=== PATIENT | male | born 1950 | race Asian ===

== ENCOUNTER 2016-12-08 20:00 | Emergency (ER) | payer BC ==
--- NOTE | 2016-12-08 20:32 | UCPHY ---
H & P Patient Type: New Chief Complaint Nursing Narrative: flu like symptoms cough/fever/body aches HPI/ROS: HPI CHIEF COMPLAINT: Fever, cough, sore throat, chills, muscle aches, joint pain, runny nose HISTORY OF PRESENT ILLNESS: This patient is a very healthy 66-year-old male denies any significant medical history or surgical history does not take any daily medications he presents to the urgent care with less then 10 hours of symptoms. He states around noon today developed a fever above 100 at work, nonproductive cough, sore throat, chills, muscle aches, joint pain runny nose. Patient concerned he may have the flu. Denies vomiting but did have 1 episode of diarrhea yesterday. Denies abdominal pain chest pain or shortness of breath nonproductive cough. Past Medical History: No significant medical history Past Surgical History: No significant surgical history Social History: Denies use of drugs alcohol tobacco products Family History: Noncontributory ROS REVIEW OF SYSTEMS: A comprehensive 10 point review of systems is otherwise negative aside from elements mentioned in the history of present illness. Exam Constitutional appears well nontoxic, triage nursing summary reviewed, vital signs reviewed, awake/alert. Eyes normal conjunctivae and sclera, EOMI, PERRLA. HENT posterior pharynx is normal, TMs bilaterally normal, normal inspection, atraumatic, moist mucus membranes, no epistaxis, neck supple/ no meningismus, no raccoon eyes. Respiratory clear to auscultation bilaterally, normal breath sounds, no respiratory distress, no wheezing. Cardiovascular rate normal, regular rhythm, no murmur, no edema, distal pulses normal. Gastrointestinal soft, non-tender, no rebound, no guarding, normal bowel sounds, no distension, no pulsatile mass. Genitourinary no CVA tenderness. Musculoskeletal no midline vertebral tenderness, full range of motion, no calf swelling, no tenderness of extremities, no meningismus, good pulses, neurovascularly intact. Skin pink, warm, & dry, no rash, skin atraumatic. Neurologic awake, alert and oriented x 3, AAOx3, moves all 4 extremities equally, motor intact, sensory intact, CN II-XII intact, normal cerebellar, normal vision, normal speech. Psychiatric normal mood/affect. Heme/Lymph/Immune no lymphadenopathy. Differential Diagnosis: includes but is not limited to in a particular order: Influenza, viral syndrome, upper history tract infection, pneumonia, viral pneumonia, bacterial pneumonia, dehydration, electrolyte abnormality Medical Decision Making: plan for this patient is to have a two view chest x- ray evaluate for pneumonia, patient have influenza test. He appears well nontoxic here no acute distress. No hypoxia no tachycardia no fever. Clinical symptoms are consistent with a viral syndrome versus influenza versus pneumonia. Here in the Urgent Care he appears well nontoxic is no labored breathing is no hypoxia he is in no acute distress. Re-evaluation: 2117: patient is resting comfortably here in the emergency room no acute distress no hypoxia no respiratory distress. Dry cough. Influenza is negative. Influenza test is negative. Chest x-ray pending. ED x-ray chest two view: Shows haziness left lower lobe as well as right heart border consistent with pneumonia. Of note patient appears well here nontoxic no fever no hypoxia. Patient be discharged home on Levaquin 1st dose given here in the emergency room. Prescription for Levaquin, guaifenesin, prednisone , albuterol. He does understand if he has any worsening symptoms includes high fevers, vomiting, fatigue, worsening shortness of breath worsening cough to seek medical attention return to the emergency room. I went over this in detail. Strict return precautions given. Source: Patient - Personal History Current Tetanus/Diphtheria Vaccine: No Tetanus Vaccine Date: since 2007 - Medical/Surgical History Hx Asthma: No Hx Chronic Respiratory Disease: No Hx Diabetes: No Hx Cardiac Disease: No Hx Renal Disease: No Hx Cirrhosis: No Hx Alcoholism: No Hx HIV/AIDS: No Hx Splenectomy or Spleen Trauma: No Other PMH: KIDNEY STONES - Family History Significant Family History: No pertinent family hx - Social History Smoking Status: Never smoked Constitutional: Initial Vital Signs Temperature (C) 37 C 12/08/16 20:16 Heart Rate 71 12/08/16 20:16 Respiratory Rate 18 12/08/16 20:16 Blood Pressure 172/79 H 12/08/16 20:16 O2 Sat (%) 94 12/08/16 20:16 O2 Delivery Mode Room Air Allergies/Adverse Reactions: No Known Allergies Allergy (Verified 12/08/16 20:16) Home Medications: Medication Instructions Recorded RX: AZITHROMYCIN [Z-PACK] 250 mg PO DAILY #6 tab 12/08/16 RX: Albuterol [Proventil Inhaler 1 - 2 puffs IH Q4H #1 mdi 12/08/16 HFA (*)] RX: Guaifenesin [Guaifenesin ER] 600 mg PO BID #14 tab.er.12h 12/08/16 RX: Ibuprofen [Motrin (*)] 800 mg PO Q6-8PRN #7 tab 12/08/16 levOFLOXACIN [levAQUIN (*)] 500 mg PO DAILY #10 tab 12/08/16 Medical Decision Making - Data Points Laboratory Results: 12/08/16 20:22 Influenza Typ A,B (DFA) NEGATIVE FOR FLU (NEGATIVE) Departure - Departure Disposition: Home, Routine, Self-Care Clinical Impression: Viral syndrome Pneumonia Qualifiers: Pneumonia type: due to unspecified organism Laterality: left Lung location: lower lobe of lung Qualified Code(s): J18.1 - Lobar pneumonia, unspecified organism Condition: Good Instructions: Viral Syndrome (ED) Additional Instructions: 1. Drink lots of fluids stay well-hydrated 2. take Tylenol or Motrin if you're having a fever chills or muscle aches. 3. Please take antibiotic as prescribed as well as her cough medicine. Referrals: Jim Jacob DO [Primary Care Provider] - As per Instructions Prescriptions: RX: Albuterol [Proventil Inhaler HFA (*)] 1 - 2 puffs IH Q4H #1 mdi RX: AZITHROMYCIN [Z-PACK] 250 mg PO DAILY #6 tab RX: Guaifenesin [Guaifenesin ER] 600 mg PO BID #14 tab.er.12h RX: Ibuprofen [Motrin (*)] 800 mg PO Q6-8PRN #7 tab levOFLOXACIN [levAQUIN (*)] 500 mg PO DAILY #10 tab - PQRS PQRS Measurement: n/a
[2016-12-08 21:37] VITALS: BP 158/100; PULSE 68; RESP 16; TEMP 99.5; O2SAT 92
== END 2016-12-08 21:42 | disposition home or self-care (01) ==
LOC: CED 20:00
DX: J18.1 Lobar pneumonia, unspecified organism (principal); B34.9 Viral infection, unspecified; Z87.442 Personal history of urinary calculi
CPT/HCPCS: 71020-PO; 87400-PO; 99204-PO; G0463-PO

== ENCOUNTER → 2017-01-07 | Outpatient (CLI) | payer BC ==
[~2017-01-07] MED LIST: IOPAMIDOL (ISOVUE-300) 100 ML BTL IV ONE
== END ==
LOC: CIMAGING 09:17
PROVIDERS: ATTEND Family Medicine
DX: R10.12 Left upper quadrant pain (principal); R14.0 Abdominal distension (gaseous); K76.89 Other specified diseases of liver
CPT/HCPCS: 74160-PO; Q9967

== ENCOUNTER 2017-05-12 18:34 | Emergency (ER) | payer BC ==
--- NOTE | 2017-05-12 18:46 | CPEKG ---
Heart Rate: 65 RR Interval: 923 P-R Interval: 156 QRSD Interval: 106 QT Interval: 416 QTC Interval: 433 P Abie: -10 QRS Abie: -7 T Wave Abie: 19 EKG Severity - NORMAL ECG - EKG Impression: SINUS RHYTHM Electronically Signed By: Narendra Mcdermott 12-May-2017 19:06:59
[2017-05-12 18:50] LABS: % IMMATURE GRANULYOCYTES 0.2 % (0.0-1.1); ABSOLUTE IMMATURE GRANULOCYTES 0.01 10^3/uL (0.00-0.10); ADD DIFF? NO; ADD MORPH? NO; ADD SCAN? NO; ATYPICAL LYMPHOCYTE FLAG 10 (0-99); FRAGMENT RBC FLAG 0 (0-99); HEMOGLOBIN 16.2 g/dL (13.7-17.5); LEFT SHIFT FLG 0 (0-99); LIPEMIA HEMOLYSIS FLAG 90 (0-99); MEAN CELL HEMOGLOBIN 31.4 pg (27.9-34.1); MEAN CELL HEMOGLOBIN CONCENTR. 34.5 g/dL (32.4-36.7); MEAN CELL VOLUME 91.1 fL (81.5-99.8); PLATELET CLUMPS FLAG 10 (0-99); PLATELET COUNT 169 10^3/uL (150-400); RED BLOOD CELL COUNT 5.16 10^6/uL (4.40-6.38); RED CELL DISTRIBUTION WIDTH 11.9 % (11.5-15.2)
--- NOTE | 2017-05-12 19:01 | EDPHY ---
H & P Stated Complaint: c/o lt sided parathesia since Time Seen by Provider: 05/12/17 18:41 HPI/ROS: This patient works at [employer] and noted that he had hypertension he checked his blood pressure this afternoon 160/90. He then developed left facial tingling in the setting of a 2 day history of headache left hemicranial described as achy in nature 6/10 intensity yesterday, 4/10 in intensity today. He did not take any medications for his headache but reports that is improving a bit today compared to yesterday and notes no exacerbating or alleviating factors for the headache which he describes as "pressure." He has never had these symptoms before. He is apprehensive about his symptoms. ROS: Constitutional: No fevers, malaise fatigue. No other constitutional symptoms HEENT: No recent URI symptoms or sinus pain. No sore throat. No ear pain. Ophthalmologic: No visual changes Pulmonary: No shortness of breath or coughing. Cardiovascular: No heart palpitations or chest pain. No lower extremity swelling. GI: No nausea vomiting or belly pain. : No complaints Integumentary: No skin rash Endocrine: No polyuria, polydipsia or other complaints. Complete review of symptoms is otherwise negative. Source: Patient Exam Limitations: No limitations - Personal History Current Tetanus Diphtheria and Acellular Pertussis (TDAP): Yes Tetanus Vaccine Date: since 2007 - Medical/Surgical History Hx Asthma: No Hx Chronic Respiratory Disease: No Hx Diabetes: No Hx Cardiac Disease: No Hx Renal Disease: No Hx Cirrhosis: No Hx Alcoholism: No Hx HIV/AIDS: No Hx Splenectomy or Spleen Trauma: No Other PMH: KIDNEY STONES - Family History Significant Family History: No pertinent family hx - Social History Smoking Status: Never smoked Alcohol Use: None Drug Use: None Additional Social History: assistant manager retail at [employer] - Physical Exam Exam: Physical exam: Vital signs are normal General: Patient is in no acute distress. HEENT: Is no external evidence of trauma on exam. Nose atraumatic. Ears: Clear bilaterally with no hemotympanum. Oropharynx: No dental trauma or malocclusion. No intraoral lacerations. Eyes: Pupils are equal and reactive to light. Extraocular motions are intact. Optic fundi: Clear with no papilledema or hemorrhage. Neck: Trachea is midline with no stridor. The patient has no midline neck tenderness and retains a full range of motion without increase in pain. Lungs: Clear to auscultation bilaterally Cardiac: Regular rate and rhythm no murmur gallop or rub. No carotid bruits. Chest: Nontender. Abdomen: Soft nontender no organomegaly Back: Nontender Extremities: Atraumatic Neuro: GCS of 15. Cranial nerves II through XII intact. No pronator drift. Cerebellar exam is normal as judged by symmetric rapid hand movements bilaterally. No pronator drift. Visual bob are full bilaterally. No sensory or motor deficits are appreciated. NIH stroke scale of 0 Initial differential diagnosis: TIA, stroke, intracranial bleed, migraine, sinusitis, anxiety, 7th nerve neuropathy without neuro deficits, hypertension, Constitutional: Initial Vital Signs Temperature (C) 36.6 C 05/12/17 18:50 Heart Rate 95 05/12/17 18:50 Respiratory Rate 18 05/12/17 18:50 Blood Pressure 127/81 H 05/12/17 18:50 O2 Sat (%) 97 05/12/17 18:50 O2 Delivery Mode Room Air Allergies/Adverse Reactions: No Known Allergies Allergy (Verified 12/08/16 20:16) Home Medications: Medication Instructions Recorded NK [No Known Home Meds] 05/12/17 Medical Decision Making - Diagnostics EKG Interpretation: 12 lead EKG performed at 6:43 p.m. reveals sinus rhythm at 65 Intervals: Normal throughout [place]: Normal throughout ST segments: Normal throughout Overall assessment: Normal EKG Imaging Results: Imaging Impressions Head CT 05/12/17 18:46 Impression: 1. Negative for intracranial abnormality. 2. Left maxillary sinus opacification. Results called and discussed with BALA BALLARD M.D. on 05/12/2017 at 19:49 CT brain no contrast-normal appearing brain with left maxillary sinusitis. I discussed this result with Dr. Izaiah Meadows, radiologist who read the study. I also reviewed the study myself. Imaging: Discussed imaging studies w/ call out clerk Radiologist ED Course/Re-evaluation: The patient fell asleep after his CT scan and his hypertension resolved to a normotensive state with pressure is 110-120 systolic over 60s. I informed him of his maxillary sinusitis left side same area as his symptoms. I think this is the cause of his mild paresthesias. No evidence of stroke on the CT scan he has no neurologic deficits on exam. - Data Points Laboratory Results: Laboratory Results 05/12/17 18:45 05/12/17 18:45 05/12/17 05/12/17 18:45 18:45 WBC 5.27 10^3/uL 10^3/uL (3.80-9.50) RBC 5.16 10^6/uL 10^6/uL (4.40-6.38) Hgb 16.2 g/dL g/dL (13.7-17.5) Hct 47.0 % % (40.0-51.0) MCV 91.1 fL fL (81.5-99.8) MCH 31.4 pg pg (27.9-34.1) MCHC 34.5 g/dL g/dL (32.4-36.7) RDW 11.9 % % (11.5-15.2) Plt Count 169 10^3/uL 10^3/uL (150-400) MPV 10.0 fL fL (8.7-11.7) Neut % (Auto) 50.4 % % (39.3-74.2) Lymph % (Auto) 37.6 % % (15.0-45.0) [place] % (Auto) 8.3 % % (4.5-13.0) Eos % (Auto) 2.7 % % (0.6-7.6) Baso % (Auto) 0.8 % % (0.3-1.7) Nucleat RBC Rel Count 0.0 % % (0.0-0.2) Absolute Neuts (auto) 2.66 10^3/uL 10^3/uL (1.70-6.50) Absolute Lymphs (auto) 1.98 10^3/uL 10^3/uL (1.00-3.00) Absolute Monos (auto) 0.44 10^3/uL 10^3/uL (0.30-0.80) Absolute Eos (auto) 0.14 10^3/uL 10^3/uL (0.03-0.40) Absolute Basos (auto) 0.04 10^3/uL 10^3/uL (0.02-0.10) Absolute Nucleated RBC 0.00 10^3/uL 10^3/uL (0-0.01) Immature Gran % 0.2 % % (0.0-1.1) Immature Gran # 0.01 10^3/uL 10^3/uL (0.00-0.10) Sodium 140 mEq/L mEq/L (134-144) Potassium 4.7 mEq/L mEq/L (3.5-5.2) Chloride 105 mEq/L mEq/L (97-110) Carbon Dioxide 22 mEq/l mEq/l (22-31) Anion Gap 13 mEq/L mEq/L (8-16) BUN 18 mg/dL mg/dL (7-23) Creatinine 0.8 mg/dL mg/dL (0.7-1.3) Estimated GFR > 60 Glucose 196 mg/dL H mg/dL (70-100) Calcium 8.8 mg/dL mg/dL (8.5-10.4) Total Bilirubin 0.3 mg/dL mg/dL (0.1-1.4) AST 23 IU/L IU/L (17-59) ALT 38 IU/L IU/L (21-72) Alkaline Phosphatase 104 IU/L IU/L (38-126) Total Protein 6.4 g/dL g/dL (6.3-8.2) Albumin 3.9 g/dL g/dL (3.5-5.0) Medications Given: Discontinued Medications Amoxicillin/Clavulanate Potassium (Augmentin 875mg) 875 mg PO EDNOW ONE PRN Reason: Protocol Stop: 05/12/17 19:48 Last Admin: 05/12/17 19:54 Dose: 875 mg Departure - Departure Disposition: Home, Routine, Self-Care Clinical Impression: Labile hypertension, Left maxillary sinusitis, Left facial paresthesia Condition: Good Instructions: Sinusitis (ED) Additional Instructions: Diagnosis: 1. Left facial paresthesia 2. Maxillary sinusitis I think that the sinusitis to the maxillary area-cheek area is the cause of ear tingling sensation. Your brain appears normal on today's CT scan. No stroke. No other abnormal findings besides sinusitis. Plan: Augmentin antibiotic. Take this for full week. Take a probiotic and/or yogurt while on this to prevent diarrhea [id number] mg to 3 times a day until symptoms resolved If you have ongoing cheek symptoms, follow up with the Ear Nose Throat doctorSamantha Sears listed below If you have ongoing tingling sensation despite the treatment or develops other tingling in other parts of her head her face, follow up with the neurologist- Dr. Smith Return to the emergency department for any significant worsening despite the treatment plan Referrals: Jim Jacob DO [Primary Care Provider] - As per Instructions Donita Sears MD [Medical Doctor] - As per Instructions David Smith MD [Medical Doctor] - As per Instructions
[2017-05-12 19:04] LABS: ALANINE AMINOTRANSFERASE 38 IU/L (21-72); ALBUMIN 3.9 g/dL (3.5-5.0); ALKALINE PHOSPHATASE 104 IU/L (38-126); ANION GAP 13 mEq/L (8-16); ASPARTATE AMINOTRANSFERASE 23 IU/L (17-59); BILIRUBIN,TOTAL 0.3 mg/dL (0.1-1.4); CALCIUM 8.8 mg/dL (8.5-10.4); CARBON DIOXIDE 22 mEq/l (22-31); CHLORIDE 105 mEq/L (97-110); CREATININE 0.8 mg/dL (0.7-1.3); GLOMERULAR FILTRATION RATE > 60; GLUCOSE 196 mg/dL (70-100); POTASSIUM 4.7 mEq/L (3.5-5.2); SODIUM 140 mEq/L (134-144); TOTAL PROTEIN 6.4 g/dL (6.3-8.2)
[2017-05-12 19:34] VITALS: BP 125/78; PULSE 62; RESP 14; TEMP 97.9; O2SAT 90
[2017-05-12] MEDS ORDERED: AMOXICILLIN/CLAVULANATE POT 875/125 MG TAB PO ONE ×2 (19:47→19:53)
== END 2017-05-12 20:14 | disposition home or self-care (01) ==
LOC: CED 18:34
DX: I10 Essential (primary) hypertension (principal); J01.00 Acute maxillary sinusitis, unspecified; R20.2 Paresthesia of skin
CPT/HCPCS: 70450-PO; 80053-PO; 85025-PO

== ENCOUNTER → 2017-07-20 | Outpatient (CLI) | payer BC | LOC: CIMAGING 07:18 | PROVIDERS: ATTEND Family Medicine | DX: K76.89 Other specified diseases of liver (principal) | CPT/HCPCS: 76705-PO ==